=== PATIENT | male | born 1970 | race Caucasian/White ===

== ENCOUNTER 2019-09-24 17:11 | Emergency (ER) | payer SELFPAY ==
[2019-09-24] MEDS ORDERED: Acetaminophen/oxyCODONE 325-5 MG Tab PO ONE (17:12)
--- NOTE | 2019-09-24 18:12 | EDM.PDOC ---
ED HPI GENERAL MEDICAL PROBLEM - General Chief Complaint: General Stated Complaint: GOUT Time Seen by Provider: 09/24/19 18:09 Source of Information: Reports: Patient History Limitations: Reports: No Limitations - History of Present Illness INITIAL COMMENTS - FREE TEXT/NARRATIVE: 49-year-old male with onset of bilateral knee pain the right knee being worse than the left knee about middle of last week. He was seen by Dr. Peraza on 2018 and had injections of steroids in both knees. He states that he get pretty good relief of the symptoms in his left knee almost immediately but the right knee was less successful. Since of last week he has noticed increasing pain in the right knee. He has also noticed some increased warmth in the right knee. The pain is currently a 10/10 when he is up and moving it. It is sharp and shooting at that time. The pain is a 4/10 now when it is in a position of comfort. He has had no fevers or chills. There are other joints that have some mild pain (left elbow and left knee). No nausea or vomiting. No cough or difficulty breathing. He has had no trauma to the area. There are no other associated signs or symptoms. There are no other modifying factors. Onset: Other (5 days ago) Duration: Getting Worse Location: Reports: Lower Extremity, Right (Right knee) Quality: Reports: Sharp, Throbbing Severity: Moderate (to severe) Improves with: Reports: Rest Worsens with: Reports: Other (Palpation), Movement Context: Reports: Other (As above) Associated Symptoms: Reports: No Other Symptoms Treatments MANAGER SAFE: Reports: NSAIDS (Indomethacin) right knee Pain Score (Numeric/FACES): 10 - Related Data Allergies Allergy/AdvReac Type Severity Reaction Status Date / Time No Known Allergies Allergy Verified 09/24/19 18:10 Home Meds: Home Meds Indomethacin 50 mg PO BID PRN 09/24/19 [History] allopurinoL [Zyloprim] 300 mg PO DAILY 09/24/19 [History] oxyCODONE HCl/Acetaminophen [Percocet 5-325 mg Tablet] 1 - 2 tab PO Q6H PRN #10 tablet 09/24/19 [Rx] Past Medical History Musculoskeletal History: Reports: Gout - Past Surgical History HEENT Surgical History: Reports: Naso-Sinus Surgery (Septoplasty) Social & Family History - Tobacco Use Smoking Status *Q: Unknown Ever Smoked - Alcohol Use Alcohol Use History: No - Living Situation & Occupation Occupation: Employed (He is self-employed as a batchmaker) ED ROS GENERAL - Review of Systems Review Of Systems: See Below Constitutional: Reports: No Symptoms HEENT: Reports: No Symptoms Respiratory: Reports: No Symptoms Cardiovascular: Reports: No Symptoms Endocrine: Reports: No Symptoms GI/Abdominal: Reports: No Symptoms : Reports: No Symptoms Musculoskeletal: Reports: Leg Pain (Right knee pain), Joint Pain (Right knee) Skin: Reports: Other (Increased warmth over right knee) Neurological: Reports: No Symptoms Hematologic/Lymphatic: Reports: No Symptoms Immunologic: Reports: No Symptoms ED EXAM, GENERAL - Physical Exam Exam: See Below Exam Limited By: No Limitations General Appearance: Alert, WD/WN, Moderate Distress (Secondary to pain), Other ( He appears nontoxic) Eye Exam: Bilateral Eye: EOMI, Normal Inspection, PERRL Ears: Normal External Exam, Hearing Grossly Normal Ear Exam: Bilateral Ear: Auricle Normal Nose: Normal Inspection, Normal Mucosa, No Blood Throat/Mouth: Normal Inspection, Normal Lips, Normal Oropharynx, Normal Voice, No Airway Compromise Head: Atraumatic, Normocephalic Neck: Normal Inspection, Supple, Non-Tender, Full Range of Motion Respiratory/Chest: No Respiratory Distress, Lungs Clear, Normal Breath Sounds, No Accessory Muscle Use, Chest Non-Tender Cardiovascular: Normal Peripheral Pulses, Regular Rate, Rhythm, No Murmur Peripheral Pulses: 2+: Radial (L), Radial (R), Dorsalis Pedis (L), Dorsalis Pedis (R) GI/Abdominal: Normal Bowel Sounds, Soft, Non-Tender, No Distention, No Mass Back Exam: Normal Inspection Extremities: No Pedal Edema, Normal Capillary Refill, Limited Range of Motion ( Of right knee), Increased Warmth (A right knee), Other (I don't detect any significant effusion on exam.) Neurological: Alert, Oriented, CN II-XII Intact, Normal Cognition, No Motor/ Sensory Deficits Skin Exam: Warm, Dry, Intact, Normal Color, No Rash, Increased Warmth (Over right knee) Course - Vital Signs Last Recorded V/S: Last Vital Signs Temp 36.7 C 09/24/19 18:00 Pulse 99 09/24/19 18:00 Resp 17 12/22/19 18:00 BP 146/86 H 09/24/19 18:00 Pulse Ox 100 09/24/19 18:00 - Orders/Labs/Meds Orders: Active Orders 24 hr Category Date Time Status Knee 1V or 2V Rt [CR] Stat Exams 09/24/19 18:24 Taken Labs: Laboratory Tests 09/24/19 09/24/19 Range/Units 18:32 18:32 WBC 10.2 (4.5-12.0) X10-3/uL RBC 4.61 (4.30-5.75) x10(6)uL Hgb 13.7 (13.5-17.8) g/dL Hct 40.4 (30.0-51.3) % MCV 87.6 (80-96) fL MCH 29.8 (27.7-33.6) pg MCHC 34.0 (32.2-35.4) g/dL RDW 13.6 (11.5-15.5) % Plt Count 301 (125-369) X10(3)uL MPV 6.8 L (7.4-10.4) fL Neut % (Auto) 70.1 (46-82) % Lymph % (Auto) 19.6 (13-37) % [place] % (Auto) 9.5 (4-12) % Eos % (Auto) 1 (1.0-5.0) % Baso % (Auto) 0 (0-2) % Neut # (Auto) 7.1 (1.6-8.3) # Lymph # (Auto) 2.0 (0.6-5.0) # [place] # (Auto) 1.0 (0.0-1.3) # Eos # (Auto) 0.1 (0.0-0.8) # Baso # (Auto) 0.0 (0.0-0.2) # C-Reactive Protein 0.2 L (0.5-0.9) mg/dL Meds: Medications Discontinued Medications Generic Name Dose Route Start Last Admin Trade Name Freq PRN Reason Stop Dose Admin Colchicine 0.6 mg 09/24/19 19:28 09/24/19 19:33 Colcrys PO 09/24/19 19:29 Not Given ONETIME ONE Colchicine 1.2 mg 09/24/19 19:32 09/24/19 19:36 Colcrys PO 09/24/19 19:33 1.2 mg ONETIME ONE Administration Colchicine Confirm 09/24/19 19:39 09/24/19 19:40 Colcrys Administered 09/24/19 19:40 0.6 mg Dose Administration 0.6 mg .ROUTE .STK-MED ONE Colchicine 0.6 mg 09/24/19 19:44 Colcrys PO 09/24/19 19:45 ONETIME ONE - Radiology Interpretation Free Text/Narrative:: X-ray of right knee shows mild effusion and no acute bony abnormality. There is also no significant DJD. - Re-Assessments/Exams Free Text/Narrative Re-Assessment/Exam: 09/24/19 19:45: The patient's blood tests are reassuring. A x-ray of his right knee shows a small effusion (I cannot really palpate an effusion on my exam). This is most probably an acute gouty attack. I will treat the patient with colchicine, 1.2 mg by mouth now and then 0.6 mg by mouth at 9 PM tonight when he gets home. I will also give him a take-home pack of Percocets and a prescription for the same. He is to continue to take the Indocin 50 mg twice daily. I have also told him to stop the allopurinol did not take the allopurinol during his acute gouty attack. However, it is possible that this represents an acute infection. I discussed with him the signs and symptoms of this and also have told them that if this seems to worsen or fails to improve over the next 8 hours, he needs to have this evaluated again urgently at that time. Certainly if he develops fever, chills or rapidly progressive redness, swelling or pain, he should come back to the emergency department immediately at that time for reevaluation. Departure - Departure Time of Disposition: 19:55 Disposition: Home, Self-Care 01 Condition: Good Clinical Impression: Acute gouty arthritis Gout of right knee Qualifiers: Gout etiology: unspecified cause Chronicity: acute Qualified Code(s): M10.9 - Gout, unspecified - Discharge Information Prescriptions: oxyCODONE HCl/Acetaminophen [Percocet 5-325 mg Tablet] 1 - 2 tab PO Q6H PRN #10 tablet PRN Reason: Moderate to severe pain Instructions: Low-Purine Eating Plan, Gout, [id number] Referrals: Michael Morris MD [Primary Care Provider] - Forms: ED Department Discharge Additional Instructions: Your blood tests were reassuring. The x-ray of your right knee did not show any acute bony abnormality and there was not any significant degeneration noted on the x-ray. I believe that this is most probably an acute gouty arthritis attack of your right knee. You were given a medication called colchicine in the emergency department and you are to take another dose of this medication at 9 PM tonight when you get home. I have also given you a take-home pack of Percocet 5/325. You should take the Percocet for moderate to severe pain and I recommend that you take a dose of this medication when you get home. Do not take the allopurinol again until the acute gouty attack resolves. As we discussed, this could still represent an infection in your right knee. If your symptoms fail to improve over the next 8-10 hours, you should have your right knee evaluated again urgently tomorrow. If you have increasing pain, increasing redness, increasing swelling, fever, chills before then, come back to see department for at that time. Sepsis Event Note - Evaluation Sepsis Screening Result: No Definite Risk - Focused Exam Vital Signs: Vital Signs Temp Pulse Resp BP Pulse Ox 09/24/19 18:00 36.7 C 99 17 146/86 H 100 Date Exam was Performed: 09/24/19 Time Exam was Performed: 20:01 - My Orders Last 24 Hours: My Active Orders 09/24/19 18:24 Knee 1V or 2V Rt [CR] Stat - Assessment/Plan Last 24 Hours: My Active Orders 09/24/19 18:24 Knee 1V or 2V Rt [CR] Stat
[2019-09-24] MEDS ORDERED: Colchicine 0.6 MG Tab PO ONE ×3 (19:28→19:44)
[2019-09-24] MEDS ORDERED: Colchicine 0.6 MG Tab ONE (19:39)
--- NOTE | 2019-09-25 09:25 | CR ---
INDICATION: Right knee pain. No history of trauma. Cortisone injection last week for pain. History of gout. RIGHT KNEE: Frontal and lateral views of the right knee were obtained 09/24/19 - no comparisons. A spur is noted moderate size off the cranial anterior aspect of the patella at the tendinous insertion. There are some minimal degenerative changes at the intercondylar spine area, and off the lateral aspect of the tibia. Femorotibial and patellofemoral joint spaces appear to be fairly well maintained. There is a slight bulge at the suprapatellar bursa raising question of minimal knee joint effusion - correlate clinically. Overall bone density appeared normal. A fracture or dislocation was not identified. There is a protuberant bony density along the lateral aspect of the lateral tibial metaphysis area which could represent an osteochondroma. This could be correlated clinically. If tenderness is elicited in that area specifically - lateral aspect of the tibia just below the joint surface of the knee, additional workup may be warranted such as nuclear bone imaging and/or MRI, as a degeneration into malignancy can occur with osteochondroma. MTDD
== END 2019-09-24 20:10 | disposition home or self-care (01) ==
LOC: EDUNIT# 17:11 → FB.ED 17:11
DX: M10.061 Idiopathic gout, right knee (principal)
CPT/HCPCS: 36415; 73560-RT; 85025; 86140; 99283; 99283-25; A9270-GY